=== PATIENT | male | born 1990 | race Caucasian/White ===

== ENCOUNTER → 2017-05-06 | Outpatient (CLI) | payer MEDICAID ==
[~2017-05-06] MED LIST: ADDERALL7.5 M1 PO; BACTRIM DS 8001 TA1 PO; DEXEDRINE10 MG PO; FLEXERIL10 MG PO; KEFLEX 500MG.500 MG PO; NAPROSYN 500MG500 MG PO; PHENERGAN 25MG.25 M1 PO
[2017-05-06 09:43] LABS: LYMPH # 3.5 K/mm3 (0.7-4.5); LYMPH % 45.8 % (10-50)
[2017-05-06 10:00] LABS: BUN 15 mg/dL (7-18)
[2017-05-06 10:07] LABS: GFR (ESTIMATED) 103 ML/MIN (>60)
[2017-05-06 11:00] LABS: AMPHETAMINES/METAMPHETAMINES NEGATIVE ng/mL (<1000)
--- NOTE | 2017-05-06 13:41 | RADIOLOGY REPORT PS360 ---
US RUQ-(ABD LTD)1ORGAN/QUAD/FU HISTORY: ELEVATED LIVER ENZYMES ORDERING PHYSICIAN: RA RHODES PATIENT AGE: 26 years COMPARISON: None FINDINGS: PANCREAS:Unremarkable. No obvious mass or abnormal fluid collection. No ductal dilatation LIVER:No focal liver lesions demonstrated. Homogeneous echogenicity. No intrahepatic biliary ductal dilatation evident. There is some accentuation of the portal triads/starry night appearance which is nonspecific but may be seen with hepatitis. RIGHT KIDNEY:Unremarkable. Normal size and echogenicity. No hydronephrosis GALLBLADDER:No gallstones, gallbladder wall thickening, pericholecystic fluid, or biliary dilatation. IMPRESSION: 1. No gallstones or other acute anomaly evident. 2. Scattered small hyper echogenicities within the liver nonspecific but may be seen with hepatitis
[2017-05-07 05:40] LABS: HBsAg Screen Negative (Negative); HIV Screen 4th Generation wRfx Non Reactive (Non Reactive); Hep A Ab, Total Negative (Negative); Hep B Core Ab, Tot Negative (Negative); Hepatitis B Surf Ab Quant <3.1 mIU/mL (Immunity>9.9)
[2017-05-11 07:38] LABS: ALT (SGPT) P5P 220 IU/L (0-55); Alpha 2-Macroglobulins, Qn 282 mg/dL (110-276); Apolipoprotein A-1 144 mg/dL (101-178); Bilirubin, Total 0.8 mg/dL (0.0-1.2); Fibrosis Score 0.54 (0.00-0.21); GGT 211 IU/L (0-65); Haptoglobin 98 mg/dL (34-200); Necroinflammat Activity Grade A3-Severe activity (.); Necroinflammat Activity Score 0.88 (0.00-0.17)
[2017-05-12 03:37] LABS: Opiates Negative (Cutoff=100)
== END ==
LOC: LAB 08:00 → RAD 08:00
PROVIDERS: Nurse Practitioner
DX: R74.8 Abnormal levels of other serum enzymes (principal)
CPT/HCPCS: G0432